=== PATIENT | male | born 1990 ===

== ENCOUNTER 2017-08-15 21:10 | Emergency (ER) | payer OTHER ==
--- NOTE | 2017-08-15 22:05 | ED PDOC ---
Arrival/HPI - General Chief Complaint: Anxiety Time Seen by Provider: 08/15/17 21:49 Historian: Patient - History of Present Illness Narrative History of Present Illness (Text): 08/15/17 22:05 27 year old male, whose past medical history includes, paroxysmal afib, presents to the emergency department complaining of reoccurring episodes of sweaty palms and feeling anxious that began 2 weeks ago after being seen and treated at [facility] [place] for transient episode atrial fibrillation. Patient reports his first episode began 2 weeks ago after starting his new medication Metoprolol and Aspirin prescribed for him.. Patient was told if reoccurring symptoms he might need ablation therapy. He denies any drug use. Patient denies any fever, chills, chest pain, shortness of breath, recent palpitations, nausea, vomiting, diarrhea, urinary symptoms, back pain, neck pain, headache, dizziness, or any other complaints. Time/Duration: > week Symptom Onset: Gradual Symptom Course: Unchanged Activities at Onset: Light Context: Home Past Medical History - Provider Review Nursing Documentation Reviewed: Yes - Infectious Disease Hx of Infectious Diseases: None - Cardiac Hx Cardiac Disorders: Yes Hx Atrial Fibrillation: Yes - Pulmonary Hx Respiratory Disorders: No - Neurological Hx Neurological Disorder: No - HEENT Hx HEENT Disorder: No - Renal Hx Renal Disorder: No - Endocrine/Metabolic Hx Endocrine Disorders: No - Hematological/Oncological Hx Blood Disorders: No - Integumentary Hx Dermatological Disorder: No - Musculoskeletal/Rheumatological Hx Musculoskeletal Disorders: No - Gastrointestinal Hx Gastrointestinal Disorders: No - Genitourinary/Gynecological Hx Genitourinary Disorders: No - Psychiatric Hx Psychophysiologic Disorder: No Hx Substance Use: No Family/Social History - Physician Review Nursing Documentation Reviewed: Yes Family/Social History: No Known Family HX Smoking Status: Unknown If Ever Smoked Hx Alcohol Use: Yes Frequency of alcohol use: Socially Hx Substance Use: No Allergies/Home Meds Allergies/Adverse Reactions: Allergies No Known Allergies Allergy (Verified 08/15/17 21:26) Home Medications: Home Meds Medication Instructions Recorded Confirmed Aspirin [Aspirin Chewable] 81 mg PO DAILY 08/15/17 08/15/17 Metoprolol Tartrate [Lopressor] 25 mg PO DAILY 08/15/17 08/15/17 Review of Systems - Physician Review All systems were reviewed & negative as marked: Yes - Review of Systems Constitutional: absent: Fevers, Other Respiratory: absent: SOB Cardiovascular: absent: Chest Pain Gastrointestinal: absent: Diarrhea, Nausea, Vomiting Genitourinary Male: absent: Dysuria, Frequency, Hematuria Musculoskeletal: absent: Back Pain, Neck Pain Neurological: absent: Headache, Dizziness Endocrine: Diaphoresis Psychiatric: Anxiety Physical Exam Vital Signs Reviewed: Yes Vital Signs Temp Pulse Resp BP Pulse Ox 08/15/17 21:29 97.9 F 60 18 131/77 97 Temperature: Afebrile Blood Pressure: Normal Pulse: Regular Respiratory Rate: Normal Appearance: Positive for: Well-Appearing, Non-Toxic, Comfortable Pain Distress: None Mental Status: Positive for: Alert and Oriented X 3 - Systems Exam Head: Present: Atraumatic, Normocephalic Pupils: Present: PERRL Extroacular Muscles: Present: EOMI Conjunctiva: Present: Normal Mouth: Present: Moist Mucous Membranes Neck: Present: Normal Range of Motion Respiratory/Chest: Present: Clear to Auscultation, Good Air Exchange. No: Respiratory Distress, Accessory Muscle Use Cardiovascular: Present: Regular Rate and Rhythm, Normal S1, S2. No: Murmurs Abdomen: No: Tenderness, Distention, Peritoneal Signs Back: Present: Normal Inspection Upper Extremity: Present: Normal Inspection. No: Cyanosis, Edema Lower Extremity: Present: Normal Inspection. No: Edema Neurological: Present: GCS=15, CN II-XII Intact, Speech Normal Skin: Present: Warm, Dry, Normal Color. No: Rashes Psychiatric: Present: Alert, Oriented x 3, Normal Insight, Normal Concentration , Anxious (Slightly) Medical Decision Making ED Course and Treatment: 08/15/17 22:05 Impression: 27 year old male presents complaining of periods where his palms become sweaty and he feels anxious that began 2 weeks ago after starting on Metoprolol and Aspirin for his paroxysmal afib. Plan: -- EKG -- Xanax -- Reassess and disposition Progress Notes: EKG shows Sinus Bradycardia at 56 BPM with early repolarization. No acute changes. Interpreted by me. - Lab Interpretations Lab Results: 08/15/17 22:21 08/15/17 22:21 Lab Results 08/15/17 22:21: WBC 10.5, RBC 4.71, Hgb 15.2, Hct 44.5, MCV 94.5, MCH 32.3, MCHC 34.2, RDW 11.5, Plt Count 253, MPV 10.8 08/15/17 22:21: Sodium 144, Potassium 4.6, Chloride 99, Carbon Dioxide 32, Anion Gap 18, BUN 14, Creatinine 0.7 L, Est GFR ( Amer) > 60, Est GFR ( Non-Af Amer) > 60, Random Glucose 99, Calcium 9.8, Total Bilirubin 0.4, AST 26, ALT 20, Alkaline Phosphatase 94, Total Protein 8.6 H, Albumin 5.0 H, Globulin 3.7, Albumin/Globulin Ratio 1.4 - EKG Interpretation Interpreted by ED Physician: Yes Type: 12 lead EKG - Medication Orders Current Medication Orders: Discontinued Medications Alprazolam (Xanax) 0.25 mg PO ONCE ONE Stop: 08/15/17 22:07 Last Admin: 08/15/17 22:50 Dose: 0.25 mg - Scribe Statement The provider has reviewed the documentation as recorded by the Linda Mccullough Provider Scribe Attestation: All medical record entries made by the Linda were at my direction and personally dictated by me. I have reviewed the chart and agree that the record accurately reflects my personal performance of the history, physical exam, medical decision making, and the department course for this patient. I have also personally directed, reviewed, and agree with the discharge instructions and disposition. Disposition/Present on Arrival - Present on Arrival Any Indicators Present on Arrival: No History of DVT/PE: No History of Uncontrolled Diabetes: No Urinary Catheter: No History of Decub. Ulcer: No History Surgical Site Infection Following: None - Disposition Have Diagnosis and Disposition been Completed?: Yes Diagnosis: Anxiety Disposition: HOME/ ROUTINE Disposition Time: 00:00 Patient Plan: Discharge Condition: GOOD Discharge Instructions (ExitCare): Anxiety, Adult (DC) Additional Instructions: Take meds as prescribed/follow up with your doctor this week Prescriptions: hydrOXYzine HCl [Atarax] 25 mg PO Q8H PRN #16 tab PRN Reason: Anxiety Referrals: Yi Valdovinos, [Primary Care Provider] - Follow up with primary Forms: [employer] (Uzbek)
[2017-08-15 22:26] LABS: HEMOGLOBIN 15.2 g/dL (14.0-18.0); MEAN CELL VOLUME 94.5 fl (80.0-105.0); MEAN CORPUSCULAR HEMOGLOBIN 32.3 pg (25.0-35.0); MEAN CORPUSCULAR HGB CONC 34.2 g/dl (31.0-37.0); MEAN PLATELET VOLUME 10.8 fl (7.0-11.0); RBC 4.71 10^6/uL (3.5-6.1); RED CELL DISTRIBUTION WIDTH 11.5 % (11.5-14.5); WHITE BLOOD COUNT 10.5 10^3/ul (4.5-11.0)
[2017-08-15 22:42] LABS: ALB/GLOB RATIO 1.4 (1.1-1.8); ALT/SGPT 20 U/L (7-56); AST/SGOT 26 U/L (17-59); BLOOD UREA NITROGEN 14 mg/dL (7-21); CALCIUM 9.8 mg/dL (8.4-10.5); GFR AFRICAN-AMERICAN > 60; GFR NON-AFRICAN AMERICAN > 60
[2017-08-16 00:41] VITALS: BP 136/67; PULSE 62; RESP 17; TEMP 98; O2SAT 98
--- NOTE | 2017-08-16 11:19 | CARD ---
APPROVED REPORT EKG Measurement Heart [id number] <Conclusion> Sinus bradycardia Moderate voltage criteria for LVH, may be normal variant Early repolarization Borderline ECG
== END 2017-08-16 00:41 | disposition home or self-care (01) ==
LOC: ED 21:10 → MERGE 21:10 → ED 08-16 00:41
DX: F41.9 Anxiety disorder, unspecified (principal)

== ENCOUNTER 2017-09-01 04:23 | Emergency (ER) | payer OTHER ==
[2017-09-01 04:37] VITALS: RESP 18; TEMP 98.4; O2SAT 97
--- NOTE | 2017-09-01 05:24 | ED PDOC ---
Arrival/HPI - General Chief Complaint: Medical Clearance Time Seen by Provider: 09/01/17 04:26 Historian: Patient, Spouse - History of Present Illness Narrative History of Present Illness (Text): you were treated in the ED today for hx of paroxysmal atrial fibrilliation on metoprolol/aspirin and now have an ablation procedure planned for in about [address] Medley your liquor clerk and secondarily have anxiety which you were prescribed hydroxyzine and now having anxiety sensation and tired of it and otherwise without any nausea/vomiting/headache/dizziness/difficulty breathing/chest pain/abdomen pain/numbness/tingling/loss of limb function/pain with urination/thoughts to harm yourself or others or hallucinations. You have a purpose to live for your child and soon to be born child and your and you have employment which you value. 09/01/17 05:18 Time/Duration: 24 hours Symptom Course: Improving, Intermittent Quality: Other (no pain) Activities at Onset: Rest Context: Sitting Past Medical History - Provider Review Nursing Documentation Reviewed: Yes - Travel History Have you recently traveled outside [place] w/in the past 3 mons?: No - Infectious Disease Hx of Infectious Diseases: None - Cardiac Hx Cardiac Disorders: Yes Hx Atrial Fibrillation: Yes - Pulmonary Hx Respiratory Disorders: No - Neurological Hx Neurological Disorder: No - HEENT Hx HEENT Disorder: No - Renal Hx Renal Disorder: No - Endocrine/Metabolic Hx Endocrine Disorders: No - Hematological/Oncological Hx Blood Disorders: No - Integumentary Hx Dermatological Disorder: No - Musculoskeletal/Rheumatological Hx Musculoskeletal Disorders: No - Gastrointestinal Hx Gastrointestinal Disorders: No - Genitourinary/Gynecological Hx Genitourinary Disorders: No - Psychiatric Hx Psychophysiologic Disorder: No Hx Anxiety: Yes Hx Substance Use: No Family/Social History - Physician Review Nursing Documentation Reviewed: Yes Family/Social History: No Known Family HX Smoking Status: Former Smoker Hx Alcohol Use: Yes Frequency of alcohol use: Socially Hx Substance Use: No Allergies/Home Meds Allergies/Adverse Reactions: Allergies No Known Allergies Allergy (Verified 09/01/17 04:34) Home Medications: Home Meds Medication Instructions Recorded Confirmed Aspirin [Aspirin Chewable] 325 mg PO DAILY 08/15/17 09/01/17 Metoprolol Tartrate [Lopressor] 25 mg PO BID 08/15/17 09/01/17 Review of Systems - Review of Systems Constitutional: Normal Eyes: Normal ENT: Normal Respiratory: Normal Cardiovascular: Normal Gastrointestinal: Normal Genitourinary Male: Normal Musculoskeletal: Normal Skin: Normal Neurological: Normal Endocrine: Normal Hemo/Lymphatic: Normal Psychiatric: Anxiety. absent: Normal, Depression, Suicidal Ideation, Other Physical Exam Vital Signs Reviewed: Yes Vital Signs Temp Pulse Resp BP Pulse Ox 09/01/17 04:35 98.4 F 67 18 139/69 97 Temperature: Afebrile Blood Pressure: Hypertensive Pulse: Regular Respiratory Rate: Normal Appearance: Positive for: Well-Appearing, Non-Toxic, Comfortable Pain Distress: None Mental Status: Positive for: Alert and Oriented X 3 - Systems Exam Head: Present: Atraumatic, Normocephalic Pupils: Present: PERRL Extroacular Muscles: Present: EOMI Conjunctiva: Present: Normal Ears: Present: Normal Mouth: Present: Moist Mucous Membranes Pharnyx: Present: Normal Nose (External): Present: Atraumatic Nose (Internal): Present: Normal Inspection Neck: Present: Normal Range of Motion Respiratory/Chest: Present: Clear to Auscultation, Good Air Exchange Cardiovascular: Present: Regular Rate and Rhythm Abdomen: No: Tenderness, Distention, Normal Bowel Sounds, Peritoneal Signs, Rebound, Guarding, McBurney's Point Tender, Rovsing's Sign Present, Hernias, Feeding Tubes, Ostomy Tubes, Mass/Organomegaly, Scars, Other Back: Present: Normal Inspection Upper Extremity: Present: Normal Inspection Lower Extremity: Present: Normal Inspection Neurological: Present: GCS=15, CN II-XII Intact, Speech Normal, Motor Func Grossly Intact Skin: Present: Warm, Normal Color Psychiatric: Present: Alert, Oriented x 3, Normal Insight, Normal Concentration , Normal Affect, Anxious. No: Normal Mood, Agitated, Depressed Mood, Suicidal Ideation, Homicidal Ideation, Delusional, Hallucinations, Intoxicated, Lethargic , Other Medical Decision Making ED Course and Treatment: 09/01/17 05:25 you were treated in the ED today for hx of paroxysmal atrial fibrilliation on metoprolol/aspirin and now have an ablation procedure planned for in about [address] Medley your liquor clerk and secondarily have anxiety which you were prescribed hydroxyzine and now having anxiety sensation and tired of it and otherwise without any nausea/vomiting/headache/dizziness/difficulty breathing/chest pain/abdomen pain/numbness/tingling/loss of limb function/pain with urination/thoughts to harm yourself or others or hallucinations. You have a purpose to live for your child and soon to be born child and your and you have employment which you value. You were otherwise breathing easily, smiling and talking to your , good strength/sensation, walking easily, clear lungs, no abdomen tenderness, no fever temp 98.4, stable heart rate 67, stable breathing rate 18, excellent oxygen level 97% room air, elevated blood pressure 139/69 which we recommend repeat in 2-3 days primary care office to determine further treatment, requested ativan small dose, observation done in the ED with improvement, counselled to have further observation/blood tests/ radiology imaging/specialist evaluation but you refused and cautioned for complications/ but stated you wanted ativan/anti-anxiety treatment and wanted to go home with who is driving and will call your liquor clerk this morning for re-evaluation of your symptoms and medications. 1. Continue your home medications. 2. If any worsening pain, fever, chills, nausea, vomiting, difficulty breathing, numbness, loss of limb function, pain with urination or any medical condition then return to the ED. Reassessment Condition: Re-examined, Improved - EKG Interpretation Interpreted by ED Physician: Yes (NSR, LVH, early repolarization, flipped t waves avr, v1, similar 08/15/17) Type: 12 lead EKG Comparison: Similar to previous EKG Disposition/Present on Arrival - Present on Arrival Any Indicators Present on Arrival: No History of DVT/PE: No History of Uncontrolled Diabetes: No Urinary Catheter: No History of Decub. Ulcer: No History Surgical Site Infection Following: None - Disposition Have Diagnosis and Disposition been Completed?: Yes Diagnosis: Anxiety Disposition: AGAINST MEDICAL ADVICE Disposition Time: 05:26 Condition: IMPROVED Discharge Instructions (ExitCare): Anxiety, Adult (DC) Additional Instructions: you were treated in the ED today for hx of paroxysmal atrial fibrilliation on metoprolol/aspirin and now have an ablation procedure planned for in about [address] Medley your liquor clerk and secondarily have anxiety which you were prescribed hydroxyzine and now having anxiety sensation and tired of it and otherwise without any nausea/vomiting/headache/dizziness/difficulty breathing/chest pain/abdomen pain/numbness/tingling/loss of limb function/pain with urination/thoughts to harm yourself or others or hallucinations. You have a purpose to live for your child and soon to be born child and your and you have employment which you value. You were otherwise breathing easily, smiling and talking to your , good strength/sensation, walking easily, clear lungs, no abdomen tenderness, no fever temp 98.4, stable heart rate 67, stable breathing rate 18, excellent oxygen level 97% room air, elevated blood pressure 139/69 which we recommend repeat in 2-3 days primary care office to determine further treatment, requested ativan small dose, observation done in the ED with improvement, counselled to have further observation/blood tests/ radiology imaging/specialist evaluation but you refused and cautioned for complications/ but stated you wanted ativan/anti-anxiety treatment and wanted to go home with who is driving and will call your liquor clerk this morning for re-evaluation of your symptoms and medications. 1. Continue your home medications. 2. If any worsening pain, fever, chills, nausea, vomiting, difficulty breathing, numbness, loss of limb function, pain with urination or any medical condition then return to the ED. Forms: [employer] (Malay), WORK NOTE
[2017-09-01 06:10] VITALS: BP 113/76; PULSE 77
--- NOTE | 2017-09-01 10:28 | CARD ---
APPROVED REPORT EKG Measurement Heart [id number] [id number] [id number] <Conclusion> Normal sinus rhythm Minimal voltage criteria for LVH, may be normal variant Early repolarization Borderline ECG
== END 2017-09-01 05:27 | disposition left against medical advice (07) ==
LOC: ED 04:23
DX: F41.9 Anxiety disorder, unspecified (principal)

== ENCOUNTER 2017-12-25 10:00 | Emergency (ER) | payer OTHER ==
[2017-12-25 10:45] VITALS: BMI 20.3
[2017-12-25 10:49] VITALS: TEMP 98.7
--- NOTE | 2017-12-25 11:57 | RAD ---
Date of service: 12/25/2017 HISTORY: Dizzy COMPARISON: No prior. FINDINGS: LUNGS: No active pulmonary disease. PLEURA: No significant pleural effusion identified, no pneumothorax apparent. CARDIOVASCULAR: Normal. OSSEOUS STRUCTURES: No significant abnormalities. VISUALIZED UPPER ABDOMEN: Normal. OTHER FINDINGS: None. IMPRESSION: No active disease.
--- NOTE | 2017-12-25 12:05 | ED PDOC ---
Arrival/HPI - General Chief Complaint: Dizziness/Lightheaded Time Seen by Provider: 12/25/17 10:59 Historian: Patient - History of Present Illness Narrative History of Present Illness (Text): 12/25/17 11:30 27 year old male, whose past medical history includes, paroxysmal A-fib, presents to the emergency department complaining of intermittent episodes of dizziness/lightheadedness since past week. Patient states having cardiac ablation done in August secondary to atrial fibrillation and been experiencing symptoms since then. As per patient, symptoms begin when his heart rate reaches 105 bpm or above. Patient states visiting his veterinary parasitologist for the presented symptoms and was asked to wait until January for reassessment. Patient's recent visit to the Emergency Department [place] [facility] [place] where patient was reportedly cardioverted for Atrial fibrillation. Patient denies any fever, chills, nausea, vomiting, diarrhea, abdominal pain, chest pain, shortness of breath, dyspnea on exertion, cough, headache, neck pain, back pain, or any other complaints. Time/Duration: 1 week Symptom Onset: Gradual Symptom Course: Unchanged Activities at Onset: Light Context: Home Past Medical History - Provider Review Nursing Documentation Reviewed: Yes - Infectious Disease Hx of Infectious Diseases: None - Cardiac Hx Cardiac Disorders: Yes Hx Atrial Fibrillation: Yes Other/Comment: ablation done - Pulmonary Hx Respiratory Disorders: No - Neurological Hx Neurological Disorder: No - HEENT Hx HEENT Disorder: No - Renal Hx Renal Disorder: No - Endocrine/Metabolic Hx Endocrine Disorders: No - Hematological/Oncological Hx Blood Disorders: No - Integumentary Hx Dermatological Disorder: No - Musculoskeletal/Rheumatological Hx Musculoskeletal Disorders: No - Gastrointestinal Hx Gastrointestinal Disorders: No - Genitourinary/Gynecological Hx Genitourinary Disorders: No - Psychiatric Hx Psychophysiologic Disorder: No Hx Anxiety: Yes Hx Substance Use: No Family/Social History - Physician Review Nursing Documentation Reviewed: Yes Family/Social History: No Known Family HX Smoking Status: Former Smoker Hx Alcohol Use: Yes Hx Substance Use: No Allergies/Home Meds Allergies/Adverse Reactions: Allergies No Known Allergies Allergy (Verified 12/25/17 10:49) Home Medications: Home Meds Medication Instructions Recorded Confirmed Aspirin [Aspirin Chewable] 81 mg PO DAILY 08/15/17 12/25/17 Review of Systems - Physician Review All systems were reviewed & negative as marked: Yes - Review of Systems Constitutional: absent: Fevers Respiratory: absent: SOB, Cough Cardiovascular: absent: Chest Pain, RIVERA Gastrointestinal: absent: Abdominal Pain, Diarrhea, Nausea, Vomiting Musculoskeletal: absent: Back Pain, Neck Pain Neurological: Dizziness. absent: Headache Physical Exam Vital Signs Reviewed: Yes Vital Signs Temp Pulse Resp BP Pulse Ox 12/25/17 12:31 83 18 118/72 98 12/25/17 10:44 98.7 F 78 18 143/85 99 Temperature: Afebrile Blood Pressure: Normal Pulse: Regular Respiratory Rate: Normal Appearance: Positive for: Well-Appearing, Non-Toxic, Comfortable Pain Distress: None Mental Status: Positive for: Alert and Oriented X 3 - Systems Exam Head: Present: Atraumatic, Normocephalic Pupils: Present: PERRL Extroacular Muscles: Present: EOMI Conjunctiva: Present: Normal Mouth: Present: Moist Mucous Membranes Neck: Present: Normal Range of Motion Respiratory/Chest: Present: Clear to Auscultation, Good Air Exchange. No: Respiratory Distress, Accessory Muscle Use Cardiovascular: Present: Regular Rate and Rhythm, Normal S1, S2. No: Murmurs Abdomen: No: Tenderness, Distention, Peritoneal Signs Back: Present: Normal Inspection Upper Extremity: Present: Normal Inspection. No: Cyanosis, Edema Lower Extremity: Present: Normal Inspection. No: Edema Neurological: Present: GCS=15, CN II-XII Intact, Speech Normal Skin: Present: Warm, Dry, Normal Color. No: Rashes Psychiatric: Present: Alert, Oriented x 3, Normal Insight, Normal Concentration Medical Decision Making ED Course and Treatment: 12/25/17 11:30 Impression: 27 year old male presents to the Emergency Department complaining of dizziness. Plan: -- CT of Head -- Labs -- EKG -- Chest X-ray -- Reassess and disposition Prior Visits: Notes and results from previous visits were reviewed. Progress Notes: 12/25/17 12:08 EKG: Ordered, reviewed, and independently interpreted the EKG. Rate : 72 BPM Rhythm : NSR Interpretation : ST elevation at V2, V3, V4, V5 and V6. Comparison : ST elevations at leads V2, V3, V4 and some extent at V5 noted on EKG done on 09/01/2017. However not present on EKG done on 08/15/17. 12/25/17 14:05 CT of head reviewed by radiologist, shows: Normal CT of the Head. No intracranial mass, hemorrhage or evidence of acute infarct. 12/25/17 14:06 Chest X-ray reviewed by radiologist, shows: No active disease. - Lab Interpretations Lab Results: 12/25/17 11:00 12/25/17 11:40 Lab Results 12/25/17 11:40: Sodium 142, Potassium 4.4, Chloride 100, Carbon Dioxide 30, Anion Gap 16, BUN 7, Creatinine 0.6 L, Est GFR ( Amer) > 60, Est GFR (Non -Af Amer) > 60, Random Glucose 97, Calcium 9.7, Phosphorus 3.6, Magnesium 2.1, Total Bilirubin 0.5, AST 46, ALT 26, Alkaline Phosphatase 90, Lactate Dehydrogenase 385, Total Creatine Kinase 42, Troponin I < 0.01, NT-Pro-B Natriuret Pep 22.9, Total Protein 8.5 H, Albumin 4.9 H, Globulin 3.6, Albumin/ Globulin Ratio 1.4 12/25/17 11:40: PT 12.8 H, INR 1.11 12/25/17 11:00: WBC 6.7 D, RBC 4.75, Hgb 14.9, Hct 44.2, MCV 93.1, MCH 31.4, MCHC 33.7, RDW 11.6, Plt Count 271, MPV 10.2, Gran % 66.6, Lymph % (Auto) 25.1, [place] % (Auto) 7.3 H, Eos % (Auto) 0.7 L, Baso % (Auto) 0.3, Gran # 4.46, Lymph # (Auto) 1.7, [place] # (Auto) 0.5, Eos # (Auto) 0.1, Baso # (Auto) 0.02 - RAD Interpretation Radiology Orders: 12/25/17 11:21 HEAD W/O CONTRAST [CT] Stat CHEST PORTABLE [RAD] Stat - EKG Interpretation Interpreted by ED Physician: Yes Type: 12 lead EKG - Scribe Statement The provider has reviewed the documentation as recorded by the Scribe Raiza Diaz. All medical record entries made by the Scribe were at my direction and personally dictated by me. I have reviewed the chart and agree that the record accurately reflects my personal performance of the history, physical exam, medical decision making, and the department course for this patient. I have also personally directed, reviewed, and agree with the discharge instructions and disposition. Disposition/Present on Arrival - Present on Arrival Any Indicators Present on Arrival: No History of DVT/PE: No History of Uncontrolled Diabetes: No Urinary Catheter: No History of Decub. Ulcer: No History Surgical Site Infection Following: None - Disposition Have Diagnosis and Disposition been Completed?: Yes Diagnosis: Cardiac arrhythmia Disposition: HOME/ ROUTINE Disposition Time: 14:28 Patient Plan: Discharge Condition: GOOD Additional Instructions: Marlon - Your tests here today are all normal/good...... but you clearly have a problem with your heart rhythms and you have to work with your veterinary parasitologist and [facility] to get all this sorted out and taken care of. Please see them as soon as possible. Buddy- Dr. Stephane Sofia Forms: [employer] (Beninese)
[2017-12-25 12:19] LABS: INR 1.11; PROTHROMBIN TIME 12.8 SECONDS (9.4-12.5)
[2017-12-25 12:25] LABS: ALB/GLOB RATIO 1.4 (1.1-1.8); ALBUMIN 4.9 g/dL (3.0-4.8); ALT/SGPT 26 U/L (7-56); AST/SGOT 46 U/L (17-59); BLOOD UREA NITROGEN 7 mg/dL (7-21); CALCIUM 9.7 mg/dL (8.4-10.5); GFR NON-AFRICAN AMERICAN > 60
[2017-12-25 12:33] LABS: B-TYPE NATRIURETIC PEPTIDE 22.9 pg/mL (0-450); TROPONIN I < 0.01 ng/mL
[2017-12-25 12:48] LABS: BASO # 0.02 K/mm3 (0.0-2.0); BASO % 0.3 % (0.0-3.0); EOS # 0.1 (0.0-0.7); EOS % 0.7 % (1.5-5.0); GRAN # 4.46 (1.4-6.5); GRAN % 66.6 % (50.0-68.0); HEMOGLOBIN 14.9 g/dL (14.0-18.0); LYMPH # 1.7 (1.2-3.4); LYMPH % 25.1 % (22.0-35.0); MEAN CELL VOLUME 93.1 fl (80.0-105.0); MEAN CORPUSCULAR HEMOGLOBIN 31.4 pg (25.0-35.0); MEAN CORPUSCULAR HGB CONC 33.7 g/dl (31.0-37.0); MEAN PLATELET VOLUME 10.2 fl (7.0-11.0); MONO # 0.5 (0.1-0.6); MONO % 7.3 % (1.0-6.0); RBC 4.75 10^6/uL (3.5-6.1); RED CELL DISTRIBUTION WIDTH 11.6 % (11.5-14.5); WHITE BLOOD COUNT 6.7 10^3/ul (4.5-11.0)
--- NOTE | 2017-12-25 12:51 | CT ---
Date of service: 12/25/2017 PROCEDURE: CT HEAD WITHOUT CONTRAST. HISTORY: Dizzy COMPARISON: None available. TECHNIQUE: Axial computed tomography images were obtained through the head/brain without intravenous contrast. Radiation dose: Total exam DLP = 787.70 mGy-cm. This CT exam was performed using one or more of the following dose reduction techniques: Automated exposure control, adjustment of the mA and/or kV according to patient size, and/or use of iterative reconstruction technique. FINDINGS: HEMORRHAGE: No intracranial hemorrhage. BRAIN: No mass effect or edema. No atrophy or chronic microvascular ischemic changes. VENTRICLES: Unremarkable. No hydrocephalus. CALVARIUM: Unremarkable. PARANASAL SINUSES: Unremarkable as visualized. No significant inflammatory changes. MASTOID AIR CELLS: Unremarkable as visualized. No inflammatory changes. OTHER FINDINGS: None. IMPRESSION: Normal CT of the Head. No intracranial mass, hemorrhage or evidence of acute infarct.
[2017-12-25 14:40] VITALS: BP 115/67; PULSE 72; RESP 16; O2SAT 99
--- NOTE | 2017-12-25 15:12 | CARD ---
APPROVED REPORT Date of service: 12/25/2017 EKG Measurement Heart [id number] [place] 136P22 [id number] <Conclusion> Normal sinus rhythm Early repolarization Normal ECG
== END 2017-12-25 14:58 | disposition home or self-care (01) ==
LOC: ED 10:00
DX: I49.9 Cardiac arrhythmia, unspecified (principal); I48.0 Paroxysmal atrial fibrillation; Z87.891 Personal history of nicotine dependence

== ENCOUNTER 2018-06-14 19:02 | Observation (INO) | payer OTHER | END 2018-06-16 15:10 | disposition home or self-care (01) | LOC: ERH 06-15 01:04 → ED 19:02 → ERH 06-15 02:36 → 2RNO 06-15 02:58 ==

== ENCOUNTER 2018-08-07 20:15 | Emergency (ER) | payer OTHER ==
[2018-08-07 20:43] VITALS: RESP 18; TEMP 98.2; O2SAT 96
--- NOTE | 2018-08-07 20:58 | ED PDOC ---
Arrival/HPI - General Chief Complaint: Shortness Of Breath Historian: Patient - History of Present Illness Narrative History of Present Illness (Text): 08/07/18 20:55 28 y/o male, pmh including chronic left pleural effusion, nkda, c/o chronic left lung pleural effusion. Pt. stated that he has chronic pleural effusion on the left chest, had it drained at [facility] [place] about couple months ago, stated that his symptoms is significantly better compared to before, seeing the [facility] doctor for follow up as well. Pt. is here cause he wants to now when the pleural effusion will resolved. Pt has no worsening signs or symptoms, walk to the ER independently without any assistance, no chest pain or palpitation, no numbness or tingling, no other medical or psychological complaints. Past Medical History - Provider Review Nursing Documentation Reviewed: Yes - Infectious Disease Hx of Infectious Diseases: None - Cardiac Hx Cardiac Disorders: Yes Hx Atrial Fibrillation: Yes Other/Comment: ablation done - Pulmonary Hx Pneumonia: Yes - Neurological Hx Neurological Disorder: No - HEENT Hx HEENT Disorder: No - Renal Hx Renal Disorder: No - Endocrine/Metabolic Hx Endocrine Disorders: No - Hematological/Oncological Hx Blood Disorders: No - Integumentary Hx Dermatological Disorder: No - Musculoskeletal/Rheumatological Hx Musculoskeletal Disorders: No - Gastrointestinal Hx Gastrointestinal Disorders: No - Genitourinary/Gynecological Hx Genitourinary Disorders: No - Psychiatric Hx Psychophysiologic Disorder: No Hx Anxiety: Yes Hx Substance Use: No - Surgical History Other/Comment: ablation for afib - Anesthesia Hx Anesthesia: Yes Hx Anesthesia Reactions: No Hx Malignant Hyperthermia: No Family/Social History - Physician Review Nursing Documentation Reviewed: Yes Family/Social History: Unknown Family HX Smoking Status: Former Smoker Hx Alcohol Use: Yes Hx Substance Use: No Allergies/Home Meds Allergies/Adverse Reactions: Allergies No Known Allergies Allergy (Verified 08/07/18 20:41) Home Medications: Home Meds Medication Instructions Recorded Confirmed No Known Home Med 08/07/18 08/07/18 Review of Systems - Review of Systems Constitutional: absent: Fatigue, Fevers Eyes: absent: Vision Changes ENT: absent: Hearing Changes Respiratory: Cough. absent: SOB, Sputum, Wheezing Cardiovascular: absent: Chest Pain Gastrointestinal: absent: Abdominal Pain, Nausea, Vomiting Skin: absent: Rash, Pruritis Neurological: absent: Headache, Dizziness Psychiatric: absent: Anxiety, Depression, Suicidal Ideation Physical Exam Vital Signs Reviewed: Yes Vital Signs Temp Pulse Resp BP Pulse Ox 08/07/18 20:49 18 96 08/07/18 20:42 98.2 F 77 18 108/76 96 Temperature: Afebrile Blood Pressure: Normal Pulse: Regular Respiratory Rate: Normal Appearance: Positive for: Well-Appearing, Non-Toxic, Comfortable Pain Distress: None Mental Status: Positive for: Alert and Oriented X 3 - Systems Exam Head: Present: Atraumatic, Normocephalic Pupils: Present: PERRL Extroacular Muscles: Present: EOMI Conjunctiva: Present: Normal Mouth: Present: Moist Mucous Membranes Neck: Present: Normal Range of Motion Respiratory/Chest: Present: Clear to Auscultation, Good Air Exchange, Rhonchi (clear with coughin). No: Respiratory Distress, Accessory Muscle Use, Wheezes, Decreased Breath Sounds, Rales, Retracting, Tachypneic, Tender to Palpation Cardiovascular: Present: Regular Rate and Rhythm, Normal S1, S2. No: Murmurs Abdomen: No: Tenderness, Distention, Peritoneal Signs, Rebound, Guarding Back: Present: Normal Inspection Upper Extremity: Present: Normal Inspection. No: Cyanosis, Edema Lower Extremity: Present: Normal Inspection. No: Edema Neurological: Present: GCS=15, CN II-XII Intact, Speech Normal, Motor Func Grossly Intact, Normal Cerebellar Funct, Gait Normal, Memory Normal Skin: Present: Warm, Dry, Normal Color. No: Rashes Psychiatric: Present: Alert, Oriented x 3, Normal Insight, Normal Concentration Medical Decision Making ED Course and Treatment: 08/07/18 20:57 -Labs -EKG -CXR -Oxygen -Observe and reassess 08/07/18 23:34 -EKG NSR @ 78 BPM, no ST elevation or depression, no T wave inversion, early reploarization noted. -Chest xray ER wet read show no active disease -Labs are non significant -Trop is negative after 24 hours -BNP within normal limit -PERC is negative -HEART score is low -Pt. is asymptomatic in the ER, talking complete sentence, walking and talking with no shortness of breath. -All labs and radiology results discussed with the patient. I advised the patient to wait for me to let me consult with the medical team but he refused. He wants to be discharged if I can not perform the thoracentesis for him in the ER. -Case discussed with DR. Stuart and he recommend this patient can be discharged home with pmd and white sugar pan tank operator follow up . -Discharge home with education on follow up with your own pmd and white sugar pan tank operator within 2 days, return to the ER for any new or worsening signs or symptoms. - RAD Interpretation Radiology Orders: 08/07/18 20:54 CHEST PORTABLE [RAD] Stat Date of service: 08/07/2018 HISTORY: lt. sided pleural effusion COMPARISON: 06/14/2018 TECHNIQUE: 1 view obtained. FINDINGS: LUNGS: No active pulmonary disease. PLEURA: No significant pleural effusion identified, no pneumothorax apparent. CARDIOVASCULAR: No aortic atherosclerotic calcification present. Normal cardiac size. No pulmonary vascular congestion. OSSEOUS STRUCTURES: No significant abnormalities. VISUALIZED UPPER ABDOMEN: Normal. OTHER FINDINGS: None. IMPRESSION: No active disease. Direct Casting Operator: Radiologist - PA / [place] ATTENDANT / Resident Statement MD/DO has reviewed & agrees with the documentation as recorded. Disposition/Present on Arrival - Present on Arrival Any Indicators Present on Arrival: No History of DVT/PE: No History of Uncontrolled Diabetes: No Urinary Catheter: No History of Decub. Ulcer: No History Surgical Site Infection Following: None - Disposition Have Diagnosis and Disposition been Completed?: Yes Diagnosis: Pleural effusion Disposition: HOME/ ROUTINE Disposition Time: 23:35 Patient Plan: Discharge Condition: GOOD Discharge Instructions (ExitCare): Pleural Effusion (DC) Additional Instructions: Discharge home with education on follow up with your own pmd and white sugar pan tank operator within 2 days, return to the ER for any new or worsening signs or symptoms. Referrals: Abhinav Palm MD [Staff Provider] - [place] [facility] [place] - Follow up with primary Juanito Arroyo MD [Staff Provider] - Follow up with primary Forms: [employer] ([place]), WORK NOTE
[2018-08-07 21:15] LABS: BASO # 0.08 K/mm3 (0.0-2.0); EOS # 0.6 (0.0-0.7); HEMOGLOBIN 13.9 g/dL (14.0-18.0); LYMPH # 2.6 (1.2-3.4); LYMPH % 32.5 % (22.0-35.0); MEAN CELL VOLUME 90.8 fl (80.0-105.0); MEAN CORPUSCULAR HEMOGLOBIN 29.6 pg (25.0-35.0); MEAN CORPUSCULAR HGB CONC 32.6 g/dl (31.0-37.0); MEAN PLATELET VOLUME 9.7 fl (7.0-11.0); MONO # 0.4 (0.1-0.6); MONO % 5.3 % (1.0-6.0); RBC 4.69 10^6/uL (3.5-6.1); RED CELL DISTRIBUTION WIDTH 12.3 % (11.5-14.5)
[2018-08-07 21:20] LABS: INR 1.21; PARTIAL THROMBOPLASTIN TIME 33.5 Seconds (26.9-38.3); PROTHROMBIN TIME 13.4 SECONDS (9.4-12.5)
[2018-08-07 21:33] LABS: ALB/GLOB RATIO 1.2 (1.1-1.8); ALBUMIN 4.4 g/dL (3.0-4.8); AST/SGOT 21 U/L (17-59); BLOOD UREA NITROGEN 11 mg/dL (7-21); CALCIUM 9.3 mg/dL (8.4-10.5); GFR NON-AFRICAN AMERICAN > 60
[2018-08-07 21:54] LABS: B-TYPE NATRIURETIC PEPTIDE 27.1 pg/mL (0-450); TROPONIN I < 0.01 ng/mL
[2018-08-07 21:55] LABS: ALT/SGPT < 6 U/L (7-56)
[2018-08-07 22:58] VITALS: BP 108/62; PULSE 75
--- NOTE | 2018-08-08 10:55 | RAD ---
Date of service: 08/07/2018 HISTORY: lt. sided pleural effusion COMPARISON: 06/14/2018 TECHNIQUE: 1 view obtained. FINDINGS: LUNGS: No active pulmonary disease. PLEURA: No significant pleural effusion identified, no pneumothorax apparent. CARDIOVASCULAR: No aortic atherosclerotic calcification present. Normal cardiac size. No pulmonary vascular congestion. OSSEOUS STRUCTURES: No significant abnormalities. VISUALIZED UPPER ABDOMEN: Normal. OTHER FINDINGS: None. IMPRESSION: No active disease.
--- NOTE | 2018-08-08 19:27 | CARD ---
APPROVED REPORT Date of service: 08/07/2018 EKG Measurement Heart [id number] [place] 132P17 [id number] <Conclusion> Normal sinus rhythm Minimal voltage criteria for LVH, may be normal variant Early repolarization Borderline ECG
== END 2018-08-07 23:38 | disposition home or self-care (01) ==
LOC: ED 20:15
DX: J90 Pleural effusion, not elsewhere classified (principal); Z87.891 Personal history of nicotine dependence; I48.91 Unspecified atrial fibrillation